=== PATIENT | male | born 1975 | race Caucasian/White ===

== ENCOUNTER 2020-08-13 19:18 | Inpatient (IN) ==
[2020-08-13] MEDS ORDERED: methylPREDNISolone 125 MG/2 ML VIAL IVP ONE (19:26)
[2020-08-13] MEDS ORDERED: 0.9 % Sodium Chloride 1,000 ML IVC ONE ×2 (19:26→19:27)
[2020-08-13] MEDS ORDERED: Ipratropium/Albuterol Neb 3 ML IH ONE (19:26)
[2020-08-13 19:39] LABS: Basophils % 0.2 %; Hematocrit 46.1 % (37.5-50.1); Hemoglobin 15.3 g/dL (12.9-16.9); Immature Granulocytes % 0.6 % (0-4); Lymphocytes # 1.4 K/mcL (0.6-4.6); Lymphocytes % 16.2 %; Mean Corpuscular HGB Conc 33.2 g/dL (31.6-35.5); Mean Corpuscular Hemoglobin 29.7 pg (28.0-33.3); Mean Corpuscular Volume 89.3 fL (83.0-100.0); Mean Platelet Volume 10.5 fL (9.4-12.4); Monocytes # 0.3 K/mcL (0.0-1.3); Monocytes % 3.9 %; Neutrophils # 6.6 K/mcL (1.6-8.9); Platelet Count 281 K/mcL (140-400); Red Blood Count 5.16 M/mcL (4.19-5.50); Red Cell Distribution Width 12.9 % (11.5-14.5); Segmented Neutrophils % 79.1 %; White Blood Count 8.3 K/mcL (4.3-11.1)
[2020-08-13] MEDS ORDERED: cefTRIAXone 2,000 MG in Water for inj. (sterile) 20 ML IVP ONE (19:54)
[2020-08-13] MEDS ORDERED: Azithromycin 500 MG in 0.9 % Sodium Chloride 250 ML IVPB ONE (19:54)
[2020-08-13 19:58] LABS: BUN/Creatinine Ratio 25 (6-26); Blood Urea Nitrogen 22 mg/dL (6-20); Calcium 8.6 mg/dL (8.6-10.3); Carbon Dioxide 22 mEq/L (23-29); Chloride 97 mEq/L (98-107); Glucose 319 mg/dL (70-105); Osmolality,Calculated 292 (280-300); Potassium 3.7 mEq/L (3.5-5.1); Sodium 133 mEq/L (136-145); Troponin I < 0.03 ng/mL (< 0.04); eGFR For African Americans > 60 (> 60); eGFR For Non-African Americans > 60 (> 60)
[2020-08-13] MEDS ORDERED: Isovue-370 500 ML BOTTLE IVP ONE (20:27)
[2020-08-13] MEDS ORDERED: Ondansetron ODT 4 MG TAB.RAPDIS SL PRN (21:06)
[2020-08-13] MEDS: Ipratropium 1 PUFF INHALER IH SCH (22:45)
[2020-08-13] MEDS ORDERED: Nicotine 21 MG PATCH.TD24 TD PRN (23:09)
[2020-08-14 00:07] LABS: Hematocrit 45.6 % (37.5-50.1); Hemoglobin 14.6 g/dL (12.9-16.9); Mean Corpuscular Hemoglobin 29.3 pg (28.0-33.3); Mean Corpuscular Volume 91.6 fL (83.0-100.0); Mean Platelet Volume 10.6 fL (9.4-12.4); Platelet Count 267 K/mcL (140-400); Red Blood Count 4.98 M/mcL (4.19-5.50); Red Cell Distribution Width 13.1 % (11.5-14.5); White Blood Count 8.5 K/mcL (4.3-11.1)
[2020-08-14 00:26] LABS: Alanine Aminotransferase 51 Units/L (7-52); Albumin 3.4 g/dL (3.5-5.7); Albumin/Globulin Ratio 0.9 (1.1-2.2); Alkaline Phosphatase 73 Units/L (34-104); Aspartate Amino Transferase 43 Units/L (13-39); BUN/Creatinine Ratio 20 (6-26); Bilirubin,Total 0.4 mg/dL (0.3-1.0); Blood Urea Nitrogen 16 mg/dL (6-20); Calcium 7.9 mg/dL (8.6-10.3); Carbon Dioxide 18 mEq/L (23-29); Chloride 103 mEq/L (98-107); Globulin 3.7 g/dL (2.4-3.5); Glucose 366 mg/dL (70-105); Osmolality,Calculated 292 (280-300); Potassium 4.2 mEq/L (3.5-5.1); Sodium 133 mEq/L (136-145); Total Protein 7.1 g/dL (6.4-8.9); eGFR For African Americans > 60 (> 60); eGFR For Non-African Americans > 60 (> 60)
[2020-08-14] MEDS: Ipratropium 1 PUFF INHALER IH SCH ×6 (00:26→19:37)
[2020-08-14 00:59] LABS: ABG Base Excess -4 mEq/L (-2 to 3); ABG HCO3 20 mEq/L (21-27); ABG Oxygen Saturation 91 % (95-98); ABG PCO2 33 mmHg (35-45); ABG PH 7.39 pH Units (7.32-7.45); ABG PO2 62 mmHg (85-104); ABG TCO2 21 mEq/L (20-26); Blood Gas Modality ST; Blood Gas Pressure Support 6 cm H2O
[2020-08-14] MEDS: Dexamethasone 4 MG/ML VIAL IVP SCH ×3 (01:16→10:10)
[2020-08-14] MEDS: *HR* Enoxaparin 40 MG/0.4 ML SYRINGE SQ SCH ×3 (01:20→20:25)
[2020-08-14] MEDS ORDERED: D5% in Water 1,000 ML IVC PRN (03:10)
[2020-08-14] MEDS ORDERED: *HR* Dextrose 50 % in Water (Vial) 50 ML VIAL IVP PRN (03:10)
[2020-08-14] MEDS ORDERED: Dextrose Gel 15 GM/37.5 ML TUBE PO PRN ×2 (03:10)
[2020-08-14] MEDS ORDERED: Dexmedetomidine HCl 400 MCG/100 ML MLS IVC SCH (03:15)
[2020-08-14] MEDS ORDERED: Insulin DETEMIR 100 UNIT/ML X5UNITS SQ SCH (03:15)
[2020-08-14] MEDS ORDERED: *HR* Enoxaparin 40 MG/0.4 ML SYRINGE SQ SCH (06:00)
[2020-08-14] MEDS ORDERED: Insulin LISPRO 300 UNITS/3 ML VIAL SQ SCH ×2 (06:00→21:00)
[2020-08-14] MEDS: Insulin LISPRO 300 UNITS/3 ML VIAL SQ SCH ×3 (07:35→17:48)
[2020-08-14] MEDS: cefTRIAXone 2,000 MG in Water for inj. (sterile) 20 ML IVP SCH (07:36)
[2020-08-14] MEDS: Furosemide 40 MG/4 ML VIAL IVP SCH (10:10)
[2020-08-14] MEDS: Azithromycin 500 MG in 0.9 % Sodium Chloride 250 ML IVPB SCH (10:12)
[2020-08-14] MEDS: Insulin DETEMIR 100 UNIT/ML X5UNITS SQ SCH (20:25)
[2020-08-15] MEDS: Ipratropium 1 PUFF INHALER IH SCH ×7 (00:32→23:53)
[2020-08-15 01:40] LABS: Basophils % 0.3 %; Hematocrit 41.5 % (37.5-50.1); Hemoglobin 13.4 g/dL (12.9-16.9); Immature Granulocytes % 0.8 % (0-4); Lymphocytes # 0.9 K/mcL (0.6-4.6); Lymphocytes % 14.2 %; Mean Corpuscular HGB Conc 32.3 g/dL (31.6-35.5); Mean Corpuscular Hemoglobin 29.1 pg (28.0-33.3); Mean Corpuscular Volume 90.2 fL (83.0-100.0); Mean Platelet Volume 10.8 fL (9.4-12.4); Monocytes # 0.6 K/mcL (0.0-1.3); Neutrophils # 4.8 K/mcL (1.6-8.9); Platelet Count 334 K/mcL (140-400); Red Cell Distribution Width 13.3 % (11.5-14.5); Segmented Neutrophils % 74.7 %; White Blood Count 6.4 K/mcL (4.3-11.1)
[2020-08-15 02:02] LABS: Alanine Aminotransferase 70 Units/L (7-52); Albumin 3.4 g/dL (3.5-5.7); Albumin/Globulin Ratio 0.9 (1.1-2.2); Alkaline Phosphatase 79 Units/L (34-104); Aspartate Amino Transferase 54 Units/L (13-39); BUN/Creatinine Ratio 36 (6-26); Bilirubin,Total 0.4 mg/dL (0.3-1.0); Blood Urea Nitrogen 27 mg/dL (6-20); C-Reactive Protein 178 mg/L (Less than 10); Calcium 8.6 mg/dL (8.6-10.3); Carbon Dioxide 21 mEq/L (23-29); Chloride 101 mEq/L (98-107); Globulin 3.6 g/dL (2.4-3.5); Glucose 376 mg/dL (70-105); Lactate Dehydrogenase 437 Units/L (140-271); Magnesium 2.6 mg/dL (1.6-2.6); Osmolality,Calculated 301 (280-300); Phosphorous 2.8 mg/dL (2.7-4.5); Potassium 4.1 mEq/L (3.5-5.1); Sodium 135 mEq/L (136-145); eGFR For African Americans > 60 (> 60); eGFR For Non-African Americans > 60 (> 60)
[2020-08-15 02:19] LABS: Ferritin 1474 ng/mL (20-250)
[2020-08-15 02:35] LABS: Platelet Estimate Normal (Normal)
[2020-08-15] MEDS: Furosemide 40 MG/4 ML VIAL IVP SCH (08:20)
[2020-08-15] MEDS: Dexamethasone 4 MG/ML VIAL IVP SCH (08:21)
[2020-08-15] MEDS: cefTRIAXone 2,000 MG in Water for inj. (sterile) 20 ML IVP SCH (08:21)
[2020-08-15] MEDS: *HR* Enoxaparin 40 MG/0.4 ML SYRINGE SQ SCH ×2 (08:21→20:59)
[2020-08-15] MEDS: Insulin DETEMIR 100 UNIT/ML X5UNITS SQ SCH ×2 (08:26→21:00)
[2020-08-15] MEDS: Azithromycin 500 MG in 0.9 % Sodium Chloride 250 ML IVPB SCH (08:26)
[2020-08-15] MEDS: Insulin LISPRO 300 UNITS/3 ML VIAL SQ SCH ×5 (08:52→17:11)
[2020-08-15] MEDS ORDERED: Insulin LISPRO 300 UNITS/3 ML VIAL SQ SCH (12:03)
[2020-08-15] MEDS: Furosemide 240 MG in 0.9 % Sodium Chloride 96 ML IVC SCH (12:25)
[2020-08-15] MEDS ORDERED: 0.9 % Sodium Chloride 250 ML ONE (15:23)
[2020-08-15] MEDS ORDERED: Insulin LISPRO 300 UNITS/3 ML VIAL SQ ONE (21:56)
[2020-08-16] MEDS: Ipratropium 1 PUFF INHALER IH SCH ×5 (03:28→19:53)
[2020-08-16 05:40] LABS: Basophils # 0.1 K/mcL (0.0-0.2); Basophils % 0.8 %; Hematocrit 45.1 % (37.5-50.1); Hemoglobin 14.4 g/dL (12.9-16.9); Immature Granulocytes % 0.9 % (0-4); Lymphocytes # 1.5 K/mcL (0.6-4.6); Lymphocytes % 14.4 %; Mean Corpuscular HGB Conc 31.9 g/dL (31.6-35.5); Mean Corpuscular Hemoglobin 29.4 pg (28.0-33.3); Mean Platelet Volume 11.8 fL (9.4-12.4); Monocytes % 8.9 %; Platelet Count 310 K/mcL (140-400); Red Cell Distribution Width 13.2 % (11.5-14.5)
[2020-08-16 05:49] LABS: White Blood Count 10.7 K/mcL (4.3-11.1)
[2020-08-16 06:06] LABS: Platelet Estimate Normal (Normal)
[2020-08-16 06:11] LABS: Alanine Aminotransferase 71 Units/L (7-52); Albumin 3.7 g/dL (3.5-5.7); Alkaline Phosphatase 93 Units/L (34-104); Aspartate Amino Transferase 36 Units/L (13-39); BUN/Creatinine Ratio 36 (6-26); Bilirubin,Total 0.5 mg/dL (0.3-1.0); Blood Urea Nitrogen 28 mg/dL (6-20); Calcium 8.6 mg/dL (8.6-10.3); Carbon Dioxide 25 mEq/L (23-29); Chloride 98 mEq/L (98-107); Globulin 3.7 g/dL (2.4-3.5); Glucose 331 mg/dL (70-105); Lactate Dehydrogenase 375 Units/L (140-271); Magnesium 2.2 mg/dL (1.6-2.6); Osmolality,Calculated 298 (280-300); Sodium 135 mEq/L (136-145); Total Protein 7.4 g/dL (6.4-8.9); eGFR For African Americans > 60 (> 60); eGFR For Non-African Americans > 60 (> 60)
[2020-08-16 06:22] LABS: Ferritin 1008 ng/mL (20-250)
[2020-08-16 07:36] LABS: Estimated Average Glucose 309 mg/dl; Hemoglobin A1C 12.4 %
[2020-08-16 08:04] LABS: C-Reactive Protein 61 mg/L (Less than 10)
[2020-08-16] MEDS: Dexamethasone 4 MG/ML VIAL IVP SCH (09:18)
[2020-08-16] MEDS: *HR* Enoxaparin 40 MG/0.4 ML SYRINGE SQ SCH ×2 (09:19→20:39)
[2020-08-16] MEDS: cefTRIAXone 2,000 MG in Water for inj. (sterile) 20 ML IVP SCH (09:19)
[2020-08-16] MEDS: Azithromycin 500 MG in 0.9 % Sodium Chloride 250 ML IVPB SCH (09:20)
[2020-08-16] MEDS: Insulin DETEMIR 100 UNIT/ML X5UNITS SQ SCH ×2 (09:20→20:38)
[2020-08-16] MEDS: Insulin LISPRO 300 UNITS/3 ML VIAL SQ SCH ×4 (09:21→17:23)
[2020-08-16] MEDS: Furosemide 240 MG in 0.9 % Sodium Chloride 96 ML IVC SCH (12:10)
[2020-08-16] MEDS: Furosemide 80 MG in 0.9 % Sodium Chloride 50 ML IVPB SCH ×2 (12:52→20:38)
[2020-08-16] MEDS: *HR* LORazepam 2 MG/ML VIAL IVP PRN ×2 (14:23→22:56)
[2020-08-16] MEDS ORDERED: Insulin LISPRO 300 UNITS/3 ML VIAL SQ SCH (17:00)
[2020-08-16] MEDS ORDERED: Insulin LISPRO 300 UNITS/3 ML VIAL SQ ONE (21:39)
[2020-08-17] MEDS: Ipratropium 1 PUFF INHALER IH SCH ×6 (00:09→20:27)
[2020-08-17 07:49] LABS: Basophils # 0.1 K/mcL (0.0-0.2); Basophils % 0.4 %; Immature Granulocytes % 1.4 % (0-4); Lymphocytes # 2.2 K/mcL (0.6-4.6); Lymphocytes % 15.2 %; Mean Corpuscular HGB Conc 32.6 g/dL (31.6-35.5); Mean Corpuscular Hemoglobin 29.7 pg (28.0-33.3); Mean Corpuscular Volume 91.1 fL (83.0-100.0); Mean Platelet Volume 10.6 fL (9.4-12.4); Monocytes # 1.1 K/mcL (0.0-1.3); Monocytes % 7.8 %; Neutrophils # 10.8 K/mcL (1.6-8.9); Platelet Count 465 K/mcL (140-400); Red Blood Count 4.72 M/mcL (4.19-5.50); Red Cell Distribution Width 12.6 % (11.5-14.5); Segmented Neutrophils % 75.2 %; White Blood Count 14.4 K/mcL (4.3-11.1)
[2020-08-17 08:27] LABS: Hypersegmented Neutrophils Present (Not Present); Platelet Estimate Normal (Normal); Toxic Granulation Present (Not Present)
[2020-08-17 08:43] LABS: Alanine Aminotransferase 76 Units/L (7-52); Albumin 3.4 g/dL (3.5-5.7); Alkaline Phosphatase 85 Units/L (34-104); Aspartate Amino Transferase 30 Units/L (13-39); BUN/Creatinine Ratio 38 (6-26); Bilirubin,Total 0.5 mg/dL (0.3-1.0); Blood Urea Nitrogen 29 mg/dL (6-20); Calcium 8.5 mg/dL (8.6-10.3); Carbon Dioxide 28 mEq/L (23-29); Chloride 96 mEq/L (98-107); Globulin 3.3 g/dL (2.4-3.5); Glucose 296 mg/dL (70-105); Lactate Dehydrogenase 315 Units/L (140-271); Magnesium 2.4 mg/dL (1.6-2.6); Osmolality,Calculated 293 (280-300); Phosphorous 4.1 mg/dL (2.7-4.5); Sodium 133 mEq/L (136-145); Total Protein 6.7 g/dL (6.4-8.9); eGFR For African Americans > 60 (> 60); eGFR For Non-African Americans > 60 (> 60)
[2020-08-17] MEDS: Dexamethasone Sodium Phos/PF 10 MG/ML VIAL IVP SCH (09:18)
[2020-08-17] MEDS: Furosemide 80 MG in 0.9 % Sodium Chloride 50 ML IVPB SCH ×2 (09:18→21:13)
[2020-08-17] MEDS: Azithromycin 500 MG in 0.9 % Sodium Chloride 250 ML IVPB SCH (09:19)
[2020-08-17] MEDS: cefTRIAXone 2,000 MG in Water for inj. (sterile) 20 ML IVP SCH (09:19)
[2020-08-17] MEDS: *HR* LORazepam 2 MG/ML VIAL IVP PRN ×2 (09:19→16:40)
[2020-08-17] MEDS: Insulin DETEMIR 100 UNIT/ML X5UNITS SQ SCH ×2 (09:20→21:13)
[2020-08-17] MEDS: Nicotine 21 MG PATCH.TD24 TD SCH (09:20)
[2020-08-17] MEDS: Insulin LISPRO 300 UNITS/3 ML VIAL SQ SCH ×6 (09:20→16:37)
[2020-08-17] MEDS: *HR* Enoxaparin 40 MG/0.4 ML SYRINGE SQ SCH ×2 (09:21→21:13)
[2020-08-17 09:27] LABS: C-Reactive Protein 24 mg/L (Less than 10)
[2020-08-17 10:32] LABS: Ferritin 852 ng/mL (20-250)
[2020-08-17] MEDS ORDERED: Insulin DETEMIR 100 UNIT/ML X5UNITS SQ ONE (13:14)
[2020-08-18] MEDS: Ipratropium 1 PUFF INHALER IH SCH ×6 (00:06→20:21)
[2020-08-18] MEDS: *HR* LORazepam 2 MG/ML VIAL IVP PRN ×2 (00:28→08:28)
[2020-08-18 05:25] LABS: Hematocrit 44.4 % (37.5-50.1); Hemoglobin 15.1 g/dL (12.9-16.9); Mean Corpuscular Volume 88.1 fL (83.0-100.0); Mean Platelet Volume 10.7 fL (9.4-12.4); Platelet Count 418 K/mcL (140-400); Red Blood Count 5.04 M/mcL (4.19-5.50); Red Cell Distribution Width 12.4 % (11.5-14.5); White Blood Count 11.5 K/mcL (4.3-11.1)
[2020-08-18 08:07] LABS: BUN/Creatinine Ratio 38 (6-26); Blood Urea Nitrogen 28 mg/dL (6-20); Calcium 8.7 mg/dL (8.6-10.3); Carbon Dioxide 27 mEq/L (23-29); Chloride 96 mEq/L (98-107); Glucose 223 mg/dL (70-105); Magnesium 2.4 mg/dL (1.6-2.6); Osmolality,Calculated 290 (280-300); Potassium 4.2 mEq/L (3.5-5.1); Sodium 134 mEq/L (136-145); eGFR For African Americans > 60 (> 60); eGFR For Non-African Americans > 60 (> 60)
[2020-08-18] MEDS: GuaiFENesin Liq 200 MG/10 ML UDC PO PRN (08:27)
[2020-08-18] MEDS: *HR* Enoxaparin 40 MG/0.4 ML SYRINGE SQ SCH ×2 (08:27→19:33)
[2020-08-18] MEDS: Dexamethasone Sodium Phos/PF 10 MG/ML VIAL IVP SCH (08:27)
[2020-08-18] MEDS: Nicotine 21 MG PATCH.TD24 TD SCH (08:27)
[2020-08-18] MEDS: Insulin DETEMIR 100 UNIT/ML X5UNITS SQ SCH ×2 (08:27→19:33)
[2020-08-18] MEDS: Furosemide 80 MG in 0.9 % Sodium Chloride 50 ML IVPB SCH ×2 (08:28→19:32)
[2020-08-18] MEDS: Insulin LISPRO 300 UNITS/3 ML VIAL SQ SCH ×6 (08:28→16:54)
[2020-08-18] MEDS ORDERED: 0.9 % Sodium Chloride 250 ML ONE (14:09)
[2020-08-19] MEDS: Ipratropium 1 PUFF INHALER IH SCH ×7 (00:23→23:46)
[2020-08-19] MEDS: Insulin LISPRO 300 UNITS/3 ML VIAL SQ SCH ×7 (08:08→22:00)
[2020-08-19] MEDS: Insulin DETEMIR 100 UNIT/ML X5UNITS SQ SCH ×2 (08:14→22:03)
[2020-08-19] MEDS: Dexamethasone Sodium Phos/PF 10 MG/ML VIAL IVP SCH (08:15)
[2020-08-19] MEDS: *HR* Enoxaparin 40 MG/0.4 ML SYRINGE SQ SCH ×2 (08:15→21:57)
[2020-08-19] MEDS: Nicotine 21 MG PATCH.TD24 TD SCH (08:16)
[2020-08-19] MEDS: Furosemide 80 MG in 0.9 % Sodium Chloride 50 ML IVPB SCH ×3 (08:16→22:08)
[2020-08-19 15:34] LABS: Hematocrit 43.9 % (37.5-50.1); Hemoglobin 14.9 g/dL (12.9-16.9); Mean Corpuscular HGB Conc 33.9 g/dL (31.6-35.5); Mean Corpuscular Hemoglobin 30.4 pg (28.0-33.3); Mean Corpuscular Volume 89.6 fL (83.0-100.0); Mean Platelet Volume 10.5 fL (9.4-12.4); Platelet Count 524 K/mcL (140-400); Red Cell Distribution Width 12.2 % (11.5-14.5)
[2020-08-19 15:52] LABS: BUN/Creatinine Ratio 34 (6-26); Blood Urea Nitrogen 29 mg/dL (6-20); Carbon Dioxide 26 mEq/L (23-29); Chloride 91 mEq/L (98-107); Glucose 422 mg/dL (70-105); Osmolality,Calculated 292 (280-300); Potassium 4.7 mEq/L (3.5-5.1); Sodium 129 mEq/L (136-145); eGFR For African Americans > 60 (> 60); eGFR For Non-African Americans > 60 (> 60)
[2020-08-19] MEDS: *HR* LORazepam 2 MG/ML VIAL IVP PRN (22:24)
[2020-08-20] MEDS: Ipratropium 1 PUFF INHALER IH SCH ×6 (04:07→23:35)
[2020-08-20 05:50] LABS: Hematocrit 44.2 % (37.5-50.1); Hemoglobin 14.3 g/dL (12.9-16.9); Mean Corpuscular HGB Conc 32.4 g/dL (31.6-35.5); Mean Corpuscular Hemoglobin 28.7 pg (28.0-33.3); Mean Corpuscular Volume 88.8 fL (83.0-100.0); Mean Platelet Volume 11.1 fL (9.4-12.4); Platelet Count 384 K/mcL (140-400); Red Blood Count 4.98 M/mcL (4.19-5.50); Red Cell Distribution Width 12.3 % (11.5-14.5)
[2020-08-20 06:26] LABS: BUN/Creatinine Ratio 41 (6-26); Blood Urea Nitrogen 30 mg/dL (6-20); Carbon Dioxide 31 mEq/L (23-29); Chloride 96 mEq/L (98-107); Glucose 145 mg/dL (70-105); Osmolality,Calculated 289 (280-300); Potassium 4.2 mEq/L (3.5-5.1); Sodium 135 mEq/L (136-145); eGFR For African Americans > 60 (> 60); eGFR For Non-African Americans > 60 (> 60)
[2020-08-20] MEDS: Dexamethasone Sodium Phos/PF 10 MG/ML VIAL IVP SCH (07:57)
[2020-08-20] MEDS: Furosemide 20 MG/2 ML VIAL IVP SCH (07:58)
[2020-08-20] MEDS: *HR* LORazepam 2 MG/ML VIAL IVP PRN (07:58)
[2020-08-20] MEDS: *HR* Enoxaparin 40 MG/0.4 ML SYRINGE SQ SCH ×2 (07:58→20:27)
[2020-08-20] MEDS: Insulin DETEMIR 100 UNIT/ML X5UNITS SQ SCH ×2 (07:59→20:27)
[2020-08-20] MEDS: Insulin LISPRO 300 UNITS/3 ML VIAL SQ SCH ×6 (07:59→17:06)
[2020-08-20] MEDS: Nicotine 21 MG PATCH.TD24 TD SCH (08:00)
[2020-08-20] MEDS ORDERED: 0.9 % Sodium Chloride 250 ML ONE (16:46)
[2020-08-21] MEDS: Ipratropium 1 PUFF INHALER IH SCH ×6 (03:47→23:26)
[2020-08-21 07:07] LABS: Hematocrit 46.3 % (37.5-50.1); Hemoglobin 14.7 g/dL (12.9-16.9); Mean Corpuscular HGB Conc 31.7 g/dL (31.6-35.5); Mean Corpuscular Hemoglobin 28.7 pg (28.0-33.3); Mean Corpuscular Volume 90.4 fL (83.0-100.0); Mean Platelet Volume 10.4 fL (9.4-12.4); Platelet Count 604 K/mcL (140-400); Red Blood Count 5.12 M/mcL (4.19-5.50); Red Cell Distribution Width 12.5 % (11.5-14.5); White Blood Count 16.4 K/mcL (4.3-11.1)
[2020-08-21 07:27] LABS: BUN/Creatinine Ratio 41 (6-26); Blood Urea Nitrogen 29 mg/dL (6-20); Calcium 9.4 mg/dL (8.6-10.3); Carbon Dioxide 26 mEq/L (23-29); Chloride 100 mEq/L (98-107); Glucose 154 mg/dL (70-105); Osmolality,Calculated 293 (280-300); Potassium 3.9 mEq/L (3.5-5.1); Sodium 137 mEq/L (136-145); eGFR For African Americans > 60 (> 60); eGFR For Non-African Americans > 60 (> 60)
[2020-08-21] MEDS: Dexamethasone Sodium Phos/PF 10 MG/ML VIAL IVP SCH (08:02)
[2020-08-21] MEDS: Furosemide 20 MG/2 ML VIAL IVP SCH (08:02)
[2020-08-21] MEDS: *HR* Enoxaparin 40 MG/0.4 ML SYRINGE SQ SCH ×2 (08:03→20:58)
[2020-08-21] MEDS: Insulin LISPRO 300 UNITS/3 ML VIAL SQ SCH ×6 (08:03→17:23)
[2020-08-21] MEDS: Nicotine 21 MG PATCH.TD24 TD SCH (08:04)
[2020-08-21] MEDS: Insulin DETEMIR 100 UNIT/ML X5UNITS SQ SCH ×2 (08:10→21:17)
[2020-08-21] MEDS: Melatonin 3 MG TABLET PO PRN (22:13)
[2020-08-22] MEDS: Ipratropium 1 PUFF INHALER IH SCH ×6 (03:48→23:26)
[2020-08-22] MEDS: Insulin LISPRO 300 UNITS/3 ML VIAL SQ SCH ×6 (07:01→17:55)
[2020-08-22] MEDS: Furosemide 20 MG/2 ML VIAL IVP SCH (07:34)
[2020-08-22] MEDS: *HR* Enoxaparin 40 MG/0.4 ML SYRINGE SQ SCH ×2 (07:34→20:32)
[2020-08-22] MEDS: Nicotine 21 MG PATCH.TD24 TD SCH (07:34)
[2020-08-22] MEDS: Dexamethasone Sodium Phos/PF 10 MG/ML VIAL IVP SCH (07:34)
[2020-08-22] MEDS: Insulin DETEMIR 100 UNIT/ML X5UNITS SQ SCH ×2 (10:11→20:32)
[2020-08-22 14:50] LABS: Hematocrit 49.4 % (37.5-50.1); Mean Corpuscular HGB Conc 32.4 g/dL (31.6-35.5); Mean Corpuscular Hemoglobin 29.7 pg (28.0-33.3); Mean Corpuscular Volume 91.8 fL (83.0-100.0); Mean Platelet Volume 10.7 fL (9.4-12.4); Platelet Count 526 K/mcL (140-400); Red Blood Count 5.38 M/mcL (4.19-5.50); Red Cell Distribution Width 12.7 % (11.5-14.5); White Blood Count 11.8 K/mcL (4.3-11.1)
[2020-08-22 15:16] LABS: BUN/Creatinine Ratio 39 (6-26); Blood Urea Nitrogen 32 mg/dL (6-20); Calcium 9.8 mg/dL (8.6-10.3); Carbon Dioxide 20 mEq/L (23-29); Chloride 98 mEq/L (98-107); Glucose 213 mg/dL (70-105); Magnesium 2.4 mg/dL (1.6-2.6); Osmolality,Calculated 289 (280-300); Potassium 4.7 mEq/L (3.5-5.1); Sodium 133 mEq/L (136-145); eGFR For African Americans > 60 (> 60); eGFR For Non-African Americans > 60 (> 60)
[2020-08-23 02:39] LABS: Mean Corpuscular Volume 90.7 fL (83.0-100.0); Mean Platelet Volume 10.4 fL (9.4-12.4); Platelet Count 472 K/mcL (140-400); Red Blood Count 4.96 M/mcL (4.19-5.50); Red Cell Distribution Width 12.6 % (11.5-14.5); White Blood Count 15.3 K/mcL (4.3-11.1)
[2020-08-23 02:44] LABS: Hemoglobin 14.4 g/dL (12.9-16.9)
[2020-08-23 02:47] LABS: BUN/Creatinine Ratio 43 (6-26); Blood Urea Nitrogen 34 mg/dL (6-20); Carbon Dioxide 24 mEq/L (23-29); Chloride 99 mEq/L (98-107); Glucose 130 mg/dL (70-105); Osmolality,Calculated 285 (280-300); Potassium 3.7 mEq/L (3.5-5.1); Sodium 133 mEq/L (136-145); eGFR For African Americans > 60 (> 60); eGFR For Non-African Americans > 60 (> 60)
[2020-08-23] MEDS: Ipratropium 1 PUFF INHALER IH SCH ×6 (03:50→23:52)
[2020-08-23] MEDS: Furosemide 20 MG TABLET PO SCH (07:53)
[2020-08-23] MEDS: Insulin LISPRO 300 UNITS/3 ML VIAL SQ SCH ×6 (07:53→17:12)
[2020-08-23] MEDS: Dexamethasone Sodium Phos/PF 10 MG/ML VIAL IVP SCH (07:53)
[2020-08-23] MEDS: *HR* Enoxaparin 40 MG/0.4 ML SYRINGE SQ SCH ×2 (07:53→21:03)
[2020-08-23] MEDS: Insulin DETEMIR 100 UNIT/ML X5UNITS SQ SCH ×2 (07:54→21:02)
[2020-08-23] MEDS: Nicotine 21 MG PATCH.TD24 TD SCH (07:54)
[2020-08-23] MEDS: GuaiFENesin Liq 200 MG/10 ML UDC PO PRN (07:56)
[2020-08-23] MEDS: *HR* LORazepam 2 MG/ML VIAL IVP PRN ×2 (08:09→22:15)
[2020-08-24 02:14] LABS: Hemoglobin 14.7 g/dL (12.9-16.9); Mean Corpuscular HGB Conc 32.7 g/dL (31.6-35.5); Mean Corpuscular Hemoglobin 29.1 pg (28.0-33.3); Mean Corpuscular Volume 89.1 fL (83.0-100.0); Mean Platelet Volume 10.4 fL (9.4-12.4); Platelet Count 445 K/mcL (140-400); Red Blood Count 5.05 M/mcL (4.19-5.50); Red Cell Distribution Width 12.3 % (11.5-14.5); White Blood Count 15.1 K/mcL (4.3-11.1)
[2020-08-24 02:36] LABS: BUN/Creatinine Ratio 33 (6-26); Blood Urea Nitrogen 24 mg/dL (6-20); Calcium 8.9 mg/dL (8.6-10.3); Carbon Dioxide 23 mEq/L (23-29); Chloride 98 mEq/L (98-107); Glucose 110 mg/dL (70-105); Osmolality,Calculated 279 (280-300); Potassium 3.6 mEq/L (3.5-5.1); Sodium 132 mEq/L (136-145); eGFR For African Americans > 60 (> 60); eGFR For Non-African Americans > 60 (> 60)
[2020-08-24] MEDS: Ipratropium 1 PUFF INHALER IH SCH ×6 (03:58→22:58)
[2020-08-24] MEDS: Insulin LISPRO 300 UNITS/3 ML VIAL SQ SCH ×6 (08:39→16:50)
[2020-08-24] MEDS: *HR* Enoxaparin 40 MG/0.4 ML SYRINGE SQ SCH ×2 (08:45→20:25)
[2020-08-24] MEDS: Dexamethasone Sodium Phos/PF 10 MG/ML VIAL IVP SCH (08:45)
[2020-08-24] MEDS: Furosemide 20 MG TABLET PO SCH (08:45)
[2020-08-24] MEDS: Nicotine 21 MG PATCH.TD24 TD SCH (08:45)
[2020-08-24] MEDS: Insulin DETEMIR 100 UNIT/ML X5UNITS SQ SCH ×2 (08:47→20:25)
[2020-08-24] MEDS: GuaiFENesin Liq 200 MG/10 ML UDC PO PRN (09:16)
[2020-08-24] MEDS: *HR* LORazepam 2 MG/ML VIAL IVP PRN ×2 (09:21→20:25)
[2020-08-24] MEDS ORDERED: Furosemide 40 MG/4 ML VIAL IVP ONE (10:43)
[2020-08-24] MEDS: Furosemide 40 MG/4 ML VIAL IVP SCH ×2 (10:50→16:28)
[2020-08-24 11:13] LABS: ABG Base Excess 3 mEq/L (-2 to 3); ABG HCO3 26 mEq/L (21-27); ABG Oxygen Saturation 97 % (95-98); ABG PCO2 35 mmHg (35-45); ABG PH 7.48 pH Units (7.32-7.45); ABG PO2 79 mmHg (85-104); ABG TCO2 27 mEq/L (20-26)
[2020-08-24] MEDS: Melatonin 3 MG TABLET PO PRN (20:25)
[2020-08-25] MEDS: Ipratropium 1 PUFF INHALER IH SCH ×6 (03:40→23:38)
[2020-08-25] MEDS: Nicotine 21 MG PATCH.TD24 TD SCH (08:29)
[2020-08-25] MEDS: *HR* Enoxaparin 40 MG/0.4 ML SYRINGE SQ SCH ×2 (08:29→19:19)
[2020-08-25] MEDS: Furosemide 40 MG/4 ML VIAL IVP SCH ×2 (08:30→17:12)
[2020-08-25] MEDS: Dexamethasone Sodium Phos/PF 10 MG/ML VIAL IVP SCH (08:30)
[2020-08-25] MEDS: Insulin DETEMIR 100 UNIT/ML X5UNITS SQ SCH ×2 (09:09→19:19)
[2020-08-25] MEDS: Insulin LISPRO 300 UNITS/3 ML VIAL SQ SCH ×6 (09:09→17:13)
[2020-08-25] MEDS: Acetaminophen 325 MG TABLET PO PRN (09:18)
[2020-08-25 11:37] LABS: Basophils # 0.1 K/mcL (0.0-0.2); Basophils % 0.3 %; Eosinophils # 0.1 K/mcL (0.0-0.6); Eosinophils % 0.3 %; Hematocrit 46.4 % (37.5-50.1); Hemoglobin 15.3 g/dL (12.9-16.9); Immature Granulocytes % 1.1 % (0-4); Lymphocytes % 5.9 %; Mean Corpuscular Hemoglobin 29.2 pg (28.0-33.3); Mean Corpuscular Volume 88.5 fL (83.0-100.0); Mean Platelet Volume 11.2 fL (9.4-12.4); Monocytes % 5.7 %; Platelet Count 438 K/mcL (140-400); Red Blood Count 5.24 M/mcL (4.19-5.50); Red Cell Distribution Width 12.2 % (11.5-14.5); Segmented Neutrophils % 86.7 %; White Blood Count 17.3 K/mcL (4.3-11.1)
[2020-08-25 11:45] LABS: Fibrinogen 552 mg/dL (169-393)
[2020-08-25 11:46] LABS: D-Dimer 591 ng/mLFEU (0-500)
[2020-08-25 11:57] LABS: BUN/Creatinine Ratio 32 (6-26); Blood Urea Nitrogen 28 mg/dL (6-20); Carbon Dioxide 25 mEq/L (23-29); Chloride 92 mEq/L (98-107); Glucose 302 mg/dL (70-105); Osmolality,Calculated 287 (280-300); Potassium 3.6 mEq/L (3.5-5.1); Sodium 130 mEq/L (136-145); eGFR For African Americans > 60 (> 60); eGFR For Non-African Americans > 60 (> 60)
[2020-08-25] MEDS: *HR* LORazepam 2 MG/ML VIAL IVP PRN (18:55)
[2020-08-26] MEDS: Ipratropium 1 PUFF INHALER IH SCH ×6 (03:55→23:57)
[2020-08-26] MEDS: Dexamethasone Sodium Phos/PF 10 MG/ML VIAL IVP SCH (08:17)
[2020-08-26] MEDS: Nicotine 21 MG PATCH.TD24 TD SCH (08:17)
[2020-08-26] MEDS: *HR* Enoxaparin 40 MG/0.4 ML SYRINGE SQ SCH ×2 (08:18→20:03)
[2020-08-26] MEDS: Insulin DETEMIR 100 UNIT/ML X5UNITS SQ SCH ×2 (08:18→20:03)
[2020-08-26] MEDS: Insulin LISPRO 300 UNITS/3 ML VIAL SQ SCH ×6 (08:49→16:30)
[2020-08-26] MEDS: Furosemide 40 MG/4 ML VIAL IVP SCH ×2 (08:54→16:32)
[2020-08-26 09:52] LABS: Basophils % 0.2 %; Eosinophils # 0.1 K/mcL (0.0-0.6); Eosinophils % 0.3 %; Hematocrit 45.8 % (37.5-50.1); Hemoglobin 15.2 g/dL (12.9-16.9); Lymphocytes # 2.4 K/mcL (0.6-4.6); Lymphocytes % 14.1 %; Mean Corpuscular HGB Conc 33.2 g/dL (31.6-35.5); Mean Corpuscular Hemoglobin 29.1 pg (28.0-33.3); Mean Corpuscular Volume 87.6 fL (83.0-100.0); Monocytes # 1.1 K/mcL (0.0-1.3); Monocytes % 6.2 %; Neutrophils # 13.5 K/mcL (1.6-8.9); Platelet Count 406 K/mcL (140-400); Red Blood Count 5.23 M/mcL (4.19-5.50); Red Cell Distribution Width 12.4 % (11.5-14.5); Segmented Neutrophils % 78.2 %; White Blood Count 17.3 K/mcL (4.3-11.1)
[2020-08-26 10:02] LABS: Fibrinogen 500 mg/dL (169-393)
[2020-08-26 10:05] LABS: D-Dimer 580 ng/mLFEU (0-500)
[2020-08-26 10:12] LABS: BUN/Creatinine Ratio 31 (6-26); Blood Urea Nitrogen 22 mg/dL (6-20); Calcium 9.5 mg/dL (8.6-10.3); Carbon Dioxide 26 mEq/L (23-29); Chloride 97 mEq/L (98-107); Glucose 143 mg/dL (70-105); Osmolality,Calculated 284 (280-300); Potassium 3.6 mEq/L (3.5-5.1); Sodium 134 mEq/L (136-145); eGFR For African Americans > 60 (> 60); eGFR For Non-African Americans > 60 (> 60)
[2020-08-26] MEDS: *HR* LORazepam 2 MG/ML VIAL IVP PRN ×3 (10:37→23:55)
[2020-08-26] MEDS: GuaiFENesin Liq 200 MG/10 ML UDC PO PRN (10:37)
[2020-08-27] MEDS: Ipratropium 1 PUFF INHALER IH SCH ×6 (04:40→23:50)
[2020-08-27] MEDS: Insulin LISPRO 300 UNITS/3 ML VIAL SQ SCH ×6 (07:08→17:12)
[2020-08-27] MEDS: Nicotine 21 MG PATCH.TD24 TD SCH ×2 (08:15→10:02)
[2020-08-27] MEDS: Furosemide 40 MG/4 ML VIAL IVP SCH ×2 (08:15→17:10)
[2020-08-27] MEDS: Dexamethasone Sodium Phos/PF 10 MG/ML VIAL IVP SCH (08:16)
[2020-08-27] MEDS: *HR* Enoxaparin 40 MG/0.4 ML SYRINGE SQ SCH ×2 (08:16→21:33)
[2020-08-27] MEDS: Insulin DETEMIR 100 UNIT/ML X5UNITS SQ SCH ×2 (08:16→21:33)
[2020-08-27] MEDS: *HR* LORazepam 2 MG/ML VIAL IVP PRN ×2 (08:37→23:45)
[2020-08-27] MEDS: GuaiFENesin Liq 200 MG/10 ML UDC PO PRN ×2 (09:03→17:26)
[2020-08-28] MEDS: Ipratropium 1 PUFF INHALER IH SCH ×6 (03:54→23:25)
[2020-08-28] MEDS: Insulin LISPRO 300 UNITS/3 ML VIAL SQ SCH ×6 (07:59→16:49)
[2020-08-28] MEDS: *HR* LORazepam 2 MG/ML VIAL IVP PRN ×2 (08:57→15:54)
[2020-08-28] MEDS: GuaiFENesin Liq 200 MG/10 ML UDC PO PRN ×2 (08:57→16:50)
[2020-08-28] MEDS: Furosemide 40 MG/4 ML VIAL IVP SCH ×2 (09:17→16:50)
[2020-08-28] MEDS: Dexamethasone Sodium Phos/PF 10 MG/ML VIAL IVP SCH (09:17)
[2020-08-28] MEDS: Insulin DETEMIR 100 UNIT/ML X5UNITS SQ SCH ×2 (09:18→21:24)
[2020-08-28] MEDS: *HR* Enoxaparin 40 MG/0.4 ML SYRINGE SQ SCH ×3 (09:19→21:30)
[2020-08-28] MEDS: Nicotine 21 MG PATCH.TD24 TD SCH (09:19)
[2020-08-28] MEDS ORDERED: Saline Nasal Spray 44 ML BOTTLE NS PRN (11:39)
[2020-08-29] MEDS: GuaiFENesin Liq 200 MG/10 ML UDC PO PRN ×2 (00:52→12:42)
[2020-08-29] MEDS: *HR* LORazepam 2 MG/ML VIAL IVP PRN ×3 (00:52→21:34)
[2020-08-29 01:33] LABS: Basophils % 0.2 %; Eosinophils % 0.2 %; Hematocrit 43.2 % (37.5-50.1); Hemoglobin 14.7 g/dL (12.9-16.9); Immature Granulocytes % 1.3 % (0-4); Lymphocytes # 2.1 K/mcL (0.6-4.6); Lymphocytes % 13.2 %; Mean Corpuscular Hemoglobin 29.9 pg (28.0-33.3); Mean Corpuscular Volume 87.8 fL (83.0-100.0); Mean Platelet Volume 10.7 fL (9.4-12.4); Neutrophils # 12.6 K/mcL (1.6-8.9); Platelet Count 424 K/mcL (140-400); Red Blood Count 4.92 M/mcL (4.19-5.50); Red Cell Distribution Width 12.7 % (11.5-14.5); Segmented Neutrophils % 79.1 %; White Blood Count 15.9 K/mcL (4.3-11.1)
[2020-08-29 01:48] LABS: D-Dimer 744 ng/mLFEU (0-500)
[2020-08-29 01:54] LABS: BUN/Creatinine Ratio 32 (6-26); Blood Urea Nitrogen 23 mg/dL (6-20); Calcium 9.2 mg/dL (8.6-10.3); Carbon Dioxide 27 mEq/L (23-29); Chloride 93 mEq/L (98-107); Glucose 196 mg/dL (70-105); Osmolality,Calculated 281 (280-300); Potassium 3.6 mEq/L (3.5-5.1); Sodium 131 mEq/L (136-145); eGFR For African Americans > 60 (> 60); eGFR For Non-African Americans > 60 (> 60)
[2020-08-29 01:55] LABS: Fibrinogen 598 mg/dL (169-393)
[2020-08-29] MEDS: Ipratropium 1 PUFF INHALER IH SCH ×5 (03:43→20:14)
[2020-08-29] MEDS: Dexamethasone Sodium Phos/PF 10 MG/ML VIAL IVP SCH (08:32)
[2020-08-29] MEDS: *HR* Enoxaparin 40 MG/0.4 ML SYRINGE SQ SCH (08:33)
[2020-08-29] MEDS: Furosemide 40 MG/4 ML VIAL IVP SCH ×2 (08:34→17:24)
[2020-08-29] MEDS: Nicotine 21 MG PATCH.TD24 TD SCH ×2 (08:35→09:26)
[2020-08-29] MEDS: Insulin DETEMIR 100 UNIT/ML X5UNITS SQ SCH ×2 (08:39→21:34)
[2020-08-29] MEDS: Insulin LISPRO 300 UNITS/3 ML VIAL SQ SCH ×6 (09:06→17:24)
[2020-08-30] MEDS: Ipratropium 1 PUFF INHALER IH SCH ×7 (00:02→23:58)
[2020-08-30] MEDS: GuaiFENesin Liq 200 MG/10 ML UDC PO PRN (04:26)
[2020-08-30] MEDS: Dexamethasone Sodium Phos/PF 10 MG/ML VIAL IVP SCH (09:00)
[2020-08-30] MEDS: Furosemide 40 MG/4 ML VIAL IVP SCH ×2 (09:00→16:25)
[2020-08-30] MEDS: Nicotine 21 MG PATCH.TD24 TD SCH (09:01)
[2020-08-30] MEDS: Insulin DETEMIR 100 UNIT/ML X5UNITS SQ SCH ×2 (09:02→21:35)
[2020-08-30] MEDS: *HR* Enoxaparin 40 MG/0.4 ML SYRINGE SQ SCH (09:02)
[2020-08-30] MEDS: *HR* LORazepam 2 MG/ML VIAL IVP PRN ×2 (09:18→17:30)
[2020-08-30] MEDS: Insulin LISPRO 300 UNITS/3 ML VIAL SQ SCH ×6 (09:30→16:24)
[2020-08-31] MEDS: *HR* LORazepam 2 MG/ML VIAL IVP PRN ×3 (00:09→21:18)
[2020-08-31] MEDS: Ipratropium 1 PUFF INHALER IH SCH ×6 (03:54→23:35)
[2020-08-31 06:34] LABS: Fibrinogen 500 mg/dL (169-393)
[2020-08-31 06:36] LABS: BUN/Creatinine Ratio 32 (6-26); Blood Urea Nitrogen 22 mg/dL (6-20); Calcium 9.1 mg/dL (8.6-10.3); Carbon Dioxide 29 mEq/L (23-29); Chloride 94 mEq/L (98-107); D-Dimer 737 ng/mLFEU (0-500); Glucose 148 mg/dL (70-105); Osmolality,Calculated 282 (280-300); Potassium 3.9 mEq/L (3.5-5.1); Sodium 133 mEq/L (136-145); eGFR For African Americans > 60 (> 60); eGFR For Non-African Americans > 60 (> 60)
[2020-08-31] MEDS: Insulin LISPRO 300 UNITS/3 ML VIAL SQ SCH ×6 (08:32→16:53)
[2020-08-31] MEDS: Nicotine 21 MG PATCH.TD24 TD SCH (08:33)
[2020-08-31] MEDS: Furosemide 40 MG/4 ML VIAL IVP SCH ×2 (08:38→16:51)
[2020-08-31] MEDS: Dexamethasone Sodium Phos/PF 10 MG/ML VIAL IVP SCH (08:39)
[2020-08-31] MEDS: Insulin DETEMIR 100 UNIT/ML X5UNITS SQ SCH ×2 (08:39→21:17)
[2020-08-31] MEDS: *HR* Enoxaparin 40 MG/0.4 ML SYRINGE SQ SCH (08:40)
[2020-08-31 09:35] LABS: Basophils % 0.3 %; Eosinophils # 0.4 K/mcL (0.0-0.6); Eosinophils % 2.8 %; Hematocrit 45.4 % (37.5-50.1); Hemoglobin 15.2 g/dL (12.9-16.9); Lymphocytes # 2.7 K/mcL (0.6-4.6); Lymphocytes % 20.6 %; Mean Corpuscular HGB Conc 33.5 g/dL (31.6-35.5); Mean Corpuscular Hemoglobin 29.6 pg (28.0-33.3); Mean Corpuscular Volume 88.5 fL (83.0-100.0); Mean Platelet Volume 11.1 fL (9.4-12.4); Monocytes # 0.9 K/mcL (0.0-1.3); Monocytes % 6.5 %; Platelet Count 324 K/mcL (140-400); Red Blood Count 5.13 M/mcL (4.19-5.50); Red Cell Distribution Width 13.1 % (11.5-14.5); Segmented Neutrophils % 68.8 %
[2020-09-01] MEDS: Ipratropium 1 PUFF INHALER IH SCH ×5 (03:58→20:20)
[2020-09-01 05:16] LABS: Basophils % 0.2 %; Eosinophils # 0.3 K/mcL (0.0-0.6); Hematocrit 40.1 % (37.5-50.1); Immature Granulocytes % 0.7 % (0-4); Lymphocytes # 2.1 K/mcL (0.6-4.6); Lymphocytes % 21.4 %; Mean Corpuscular HGB Conc 33.7 g/dL (31.6-35.5); Mean Corpuscular Hemoglobin 30.4 pg (28.0-33.3); Mean Corpuscular Volume 90.3 fL (83.0-100.0); Mean Platelet Volume 10.5 fL (9.4-12.4); Monocytes # 0.6 K/mcL (0.0-1.3); Monocytes % 6.5 %; Neutrophils # 6.7 K/mcL (1.6-8.9); Platelet Count 255 K/mcL (140-400); Red Blood Count 4.44 M/mcL (4.19-5.50); Red Cell Distribution Width 12.9 % (11.5-14.5); Segmented Neutrophils % 68.2 %; White Blood Count 9.9 K/mcL (4.3-11.1)
[2020-09-01 05:17] LABS: Hemoglobin 13.5 g/dL (12.9-16.9)
[2020-09-01 05:22] LABS: INR 1.1
[2020-09-01 05:29] LABS: Alanine Aminotransferase 234 Units/L (7-52); Albumin 3.4 g/dL (3.5-5.7); Albumin/Globulin Ratio 1.1 (1.1-2.2); Alkaline Phosphatase 72 Units/L (34-104); Aspartate Amino Transferase 40 Units/L (13-39); BUN/Creatinine Ratio 30 (6-26); Bilirubin,Total 0.5 mg/dL (0.3-1.0); Blood Urea Nitrogen 19 mg/dL (6-20); Carbon Dioxide 32 mEq/L (23-29); Chloride 93 mEq/L (98-107); Glucose 152 mg/dL (70-105); Magnesium 2.3 mg/dL (1.6-2.6); Osmolality,Calculated 283 (280-300); Phosphorous 4.6 mg/dL (2.7-4.5); Potassium 3.7 mEq/L (3.5-5.1); Sodium 134 mEq/L (136-145); Total Protein 6.4 g/dL (6.4-8.9); eGFR For African Americans > 60 (> 60); eGFR For Non-African Americans > 60 (> 60)
[2020-09-01] MEDS: Insulin LISPRO 300 UNITS/3 ML VIAL SQ SCH ×6 (07:56→16:09)
[2020-09-01] MEDS: Insulin DETEMIR 100 UNIT/ML X5UNITS SQ SCH ×2 (08:11→20:04)
[2020-09-01] MEDS: *HR* Enoxaparin 40 MG/0.4 ML SYRINGE SQ SCH (08:12)
[2020-09-01] MEDS: Dexamethasone Sodium Phos/PF 10 MG/ML VIAL IVP SCH (08:12)
[2020-09-01] MEDS: Furosemide 40 MG/4 ML VIAL IVP SCH (08:12)
[2020-09-01] MEDS: Nicotine 21 MG PATCH.TD24 TD SCH (08:14)
[2020-09-01] MEDS: GuaiFENesin Liq 200 MG/10 ML UDC PO PRN (09:18)
[2020-09-01] MEDS: *HR* LORazepam 2 MG/ML VIAL IVP PRN ×2 (11:00→20:04)
[2020-09-01] MEDS: Furosemide 40 MG TABLET PO SCH (16:09)
[2020-09-02] MEDS: Ipratropium 1 PUFF INHALER IH SCH ×6 (00:11→20:24)
[2020-09-02 01:39] LABS: Basophils % 0.3 %; Eosinophils # 0.4 K/mcL (0.0-0.6); Eosinophils % 3.2 %; Hematocrit 39.7 % (37.5-50.1); Hemoglobin 13.1 g/dL (12.9-16.9); Immature Granulocytes % 0.8 % (0-4); Lymphocytes # 2.1 K/mcL (0.6-4.6); Lymphocytes % 18.9 %; Mean Corpuscular Hemoglobin 29.6 pg (28.0-33.3); Mean Corpuscular Volume 89.8 fL (83.0-100.0); Mean Platelet Volume 10.8 fL (9.4-12.4); Monocytes # 0.8 K/mcL (0.0-1.3); Monocytes % 6.9 %; Neutrophils # 7.6 K/mcL (1.6-8.9); Platelet Count 251 K/mcL (140-400); Red Blood Count 4.42 M/mcL (4.19-5.50); Red Cell Distribution Width 12.8 % (11.5-14.5); Segmented Neutrophils % 69.9 %; White Blood Count 10.9 K/mcL (4.3-11.1)
[2020-09-02 01:40] LABS: Alanine Aminotransferase 282 Units/L (7-52); Albumin 3.3 g/dL (3.5-5.7); Albumin/Globulin Ratio 1.1 (1.1-2.2); Alkaline Phosphatase 87 Units/L (34-104); Aspartate Amino Transferase 52 Units/L (13-39); BUN/Creatinine Ratio 32 (6-26); Bilirubin,Total 0.4 mg/dL (0.3-1.0); Blood Urea Nitrogen 23 mg/dL (6-20); Calcium 8.7 mg/dL (8.6-10.3); Carbon Dioxide 31 mEq/L (23-29); Chloride 94 mEq/L (98-107); Glucose 171 mg/dL (70-105); Magnesium 2.1 mg/dL (1.6-2.6); Osmolality,Calculated 286 (280-300); Phosphorous 4.7 mg/dL (2.7-4.5); Potassium 3.5 mEq/L (3.5-5.1); Prothrombin Time 11.6 Seconds (9.4-12.1); Sodium 134 mEq/L (136-145); Total Protein 6.3 g/dL (6.4-8.9); eGFR For African Americans > 60 (> 60); eGFR For Non-African Americans > 60 (> 60)
[2020-09-02] MEDS: *HR* LORazepam 2 MG/ML VIAL IVP PRN ×2 (08:07→21:16)
[2020-09-02] MEDS: Insulin LISPRO 300 UNITS/3 ML VIAL SQ SCH ×6 (08:09→17:05)
[2020-09-02] MEDS: Nicotine 21 MG PATCH.TD24 TD SCH (08:10)
[2020-09-02] MEDS: *HR* Enoxaparin 40 MG/0.4 ML SYRINGE SQ SCH (08:10)
[2020-09-02] MEDS: Insulin DETEMIR 100 UNIT/ML X5UNITS SQ SCH ×2 (08:11→19:51)
[2020-09-02] MEDS: Furosemide 40 MG TABLET PO SCH ×2 (08:11→17:04)
[2020-09-02] MEDS: Dexamethasone Sodium Phos/PF 10 MG/ML VIAL IVP SCH (08:11)
[2020-09-03] MEDS: Ipratropium 1 PUFF INHALER IH SCH ×6 (00:26→20:33)
[2020-09-03] MEDS: *HR* LORazepam 2 MG/ML VIAL IVP PRN ×3 (01:24→20:03)
[2020-09-03 01:51] LABS: Basophils % 0.2 %; Eosinophils # 0.3 K/mcL (0.0-0.6); Eosinophils % 2.3 %; Hematocrit 43.4 % (37.5-50.1); Hemoglobin 13.9 g/dL (12.9-16.9); Immature Granulocytes % 0.7 % (0-4); Lymphocytes # 2.6 K/mcL (0.6-4.6); Lymphocytes % 20.9 %; Mean Corpuscular Hemoglobin 29.1 pg (28.0-33.3); Mean Platelet Volume 10.2 fL (9.4-12.4); Monocytes % 8.3 %; Neutrophils # 8.3 K/mcL (1.6-8.9); Platelet Count 275 K/mcL (140-400); Red Blood Count 4.77 M/mcL (4.19-5.50); Red Cell Distribution Width 12.9 % (11.5-14.5); Segmented Neutrophils % 67.6 %; White Blood Count 12.2 K/mcL (4.3-11.1)
[2020-09-03 01:52] LABS: INR 1.1; Prothrombin Time 12.7 Seconds (9.4-12.1)
[2020-09-03 02:08] LABS: Alanine Aminotransferase 295 Units/L (7-52); Albumin 3.7 g/dL (3.5-5.7); Albumin/Globulin Ratio 1.1 (1.1-2.2); Alkaline Phosphatase 85 Units/L (34-104); Aspartate Amino Transferase 47 Units/L (13-39); BUN/Creatinine Ratio 21 (6-26); Bilirubin,Total 0.5 mg/dL (0.3-1.0); Blood Urea Nitrogen 16 mg/dL (6-20); Calcium 8.8 mg/dL (8.6-10.3); Carbon Dioxide 29 mEq/L (23-29); Chloride 97 mEq/L (98-107); Globulin 3.3 g/dL (2.4-3.5); Glucose 172 mg/dL (70-105); Magnesium 2.2 mg/dL (1.6-2.6); Osmolality,Calculated 287 (280-300); Phosphorous 3.7 mg/dL (2.7-4.5); Potassium 3.5 mEq/L (3.5-5.1); Sodium 136 mEq/L (136-145); eGFR For African Americans > 60 (> 60); eGFR For Non-African Americans > 60 (> 60)
[2020-09-03] MEDS: Insulin LISPRO 300 UNITS/3 ML VIAL SQ SCH ×6 (07:47→17:17)
[2020-09-03] MEDS: Furosemide 40 MG TABLET PO SCH ×3 (08:07→17:29)
[2020-09-03] MEDS: Nicotine 21 MG PATCH.TD24 TD SCH ×2 (08:07→10:43)
[2020-09-03] MEDS: *HR* Enoxaparin 40 MG/0.4 ML SYRINGE SQ SCH (08:07)
[2020-09-03] MEDS: Insulin DETEMIR 100 UNIT/ML X5UNITS SQ SCH ×2 (08:08→19:54)
[2020-09-03] MEDS: Dexamethasone Sodium Phos/PF 10 MG/ML VIAL IVP SCH (08:08)
[2020-09-03] MEDS: GuaiFENesin Liq 200 MG/10 ML UDC PO PRN (08:12)
[2020-09-04] MEDS: Ipratropium 1 PUFF INHALER IH SCH ×7 (00:01→23:39)
[2020-09-04] MEDS: *HR* LORazepam 2 MG/ML VIAL IVP PRN ×3 (01:24→22:10)
[2020-09-04] MEDS: Insulin LISPRO 300 UNITS/3 ML VIAL SQ SCH ×6 (07:54→17:14)
[2020-09-04] MEDS: *HR* Enoxaparin 40 MG/0.4 ML SYRINGE SQ SCH (08:07)
[2020-09-04] MEDS: Furosemide 40 MG TABLET PO SCH ×3 (08:08→17:18)
[2020-09-04] MEDS: Dexamethasone Sodium Phos/PF 10 MG/ML VIAL IVP SCH (08:08)
[2020-09-04] MEDS: Insulin DETEMIR 100 UNIT/ML X5UNITS SQ SCH ×2 (08:08→19:55)
[2020-09-04] MEDS: Nicotine 21 MG PATCH.TD24 TD SCH (08:09)
[2020-09-04 09:58] LABS: Basophils % 0.3 %; Eosinophils # 0.5 K/mcL (0.0-0.6); Eosinophils % 5.5 %; Hemoglobin 14.2 g/dL (12.9-16.9); Immature Granulocytes % 0.9 % (0-4); Lymphocytes # 2.1 K/mcL (0.6-4.6); Lymphocytes % 21.8 %; Mean Corpuscular Volume 90.9 fL (83.0-100.0); Mean Platelet Volume 10.5 fL (9.4-12.4); Monocytes # 0.5 K/mcL (0.0-1.3); Monocytes % 5.2 %; Neutrophils # 6.4 K/mcL (1.6-8.9); Platelet Count 258 K/mcL (140-400); Red Blood Count 4.73 M/mcL (4.19-5.50); Segmented Neutrophils % 66.3 %; White Blood Count 9.7 K/mcL (4.3-11.1)
[2020-09-04 10:04] LABS: INR 1.1; Prothrombin Time 12.3 Seconds (9.4-12.1)
[2020-09-04 10:21] LABS: Alanine Aminotransferase 287 Units/L (7-52); Albumin 3.9 g/dL (3.5-5.7); Albumin/Globulin Ratio 1.2 (1.1-2.2); Alkaline Phosphatase 82 Units/L (34-104); Aspartate Amino Transferase 58 Units/L (13-39); BUN/Creatinine Ratio 23 (6-26); Bilirubin,Total 0.7 mg/dL (0.3-1.0); Blood Urea Nitrogen 17 mg/dL (6-20); Calcium 9.7 mg/dL (8.6-10.3); Carbon Dioxide 28 mEq/L (23-29); Chloride 98 mEq/L (98-107); Globulin 3.3 g/dL (2.4-3.5); Glucose 192 mg/dL (70-105); Magnesium 2.1 mg/dL (1.6-2.6); Osmolality,Calculated 287 (280-300); Phosphorous 3.9 mg/dL (2.7-4.5); Potassium 4.1 mEq/L (3.5-5.1); Sodium 135 mEq/L (136-145); Total Protein 7.2 g/dL (6.4-8.9); eGFR For African Americans > 60 (> 60); eGFR For Non-African Americans > 60 (> 60)
[2020-09-04] MEDS: Melatonin 3 MG TABLET PO PRN (22:10)
[2020-09-05] MEDS: *HR* LORazepam 2 MG/ML VIAL IVP PRN ×2 (04:00→23:12)
[2020-09-05] MEDS: Ipratropium 1 PUFF INHALER IH SCH ×5 (04:32→19:54)
[2020-09-05] MEDS: Insulin LISPRO 300 UNITS/3 ML VIAL SQ SCH ×6 (09:03→17:35)
[2020-09-05] MEDS: Furosemide 40 MG TABLET PO SCH ×2 (09:06→17:35)
[2020-09-05] MEDS: Insulin DETEMIR 100 UNIT/ML X5UNITS SQ SCH ×2 (09:06→21:18)
[2020-09-05] MEDS: Dexamethasone Sodium Phos/PF 10 MG/ML VIAL IVP SCH (09:06)
[2020-09-05] MEDS: *HR* Enoxaparin 40 MG/0.4 ML SYRINGE SQ SCH (09:07)
[2020-09-05] MEDS: Nicotine 21 MG PATCH.TD24 TD SCH (09:07)
[2020-09-05 10:59] LABS: Eosinophils % 6.1 %; Hematocrit 41.1 % (37.5-50.1); Hemoglobin 13.4 g/dL (12.9-16.9); Immature Granulocytes % 1.1 % (0-4); Lymphocytes % 19.2 %; Mean Corpuscular HGB Conc 32.6 g/dL (31.6-35.5); Mean Corpuscular Volume 91.9 fL (83.0-100.0); Mean Platelet Volume 10.5 fL (9.4-12.4); Monocytes % 7.7 %; Platelet Count 229 K/mcL (140-400); Red Blood Count 4.47 M/mcL (4.19-5.50); Red Cell Distribution Width 13.1 % (11.5-14.5); Segmented Neutrophils % 65.5 %; White Blood Count 9.4 K/mcL (4.3-11.1)
[2020-09-05 11:00] LABS: Basophils % 0.4 %; Eosinophils # 0.6 K/mcL (0.0-0.6); Lymphocytes # 1.8 K/mcL (0.6-4.6); Monocytes # 0.7 K/mcL (0.0-1.3); Neutrophils # 6.2 K/mcL (1.6-8.9)
[2020-09-05 11:11] LABS: INR 1.1; Prothrombin Time 12.8 Seconds (9.4-12.1)
[2020-09-05 11:24] LABS: Alanine Aminotransferase 265 Units/L (7-52); Albumin 3.6 g/dL (3.5-5.7); Albumin/Globulin Ratio 1.3 (1.1-2.2); Alkaline Phosphatase 73 Units/L (34-104); Aspartate Amino Transferase 58 Units/L (13-39); BUN/Creatinine Ratio 27 (6-26); Bilirubin,Total 0.5 mg/dL (0.3-1.0); Blood Urea Nitrogen 20 mg/dL (6-20); Calcium 9.3 mg/dL (8.6-10.3); Carbon Dioxide 25 mEq/L (23-29); Chloride 100 mEq/L (98-107); Globulin 2.8 g/dL (2.4-3.5); Glucose 234 mg/dL (70-105); Magnesium 1.9 mg/dL (1.6-2.6); Osmolality,Calculated 286 (280-300); Phosphorous 3.1 mg/dL (2.7-4.5); Potassium 4.3 mEq/L (3.5-5.1); Sodium 133 mEq/L (136-145); Total Protein 6.4 g/dL (6.4-8.9); eGFR For African Americans > 60 (> 60); eGFR For Non-African Americans > 60 (> 60)
[2020-09-06] MEDS: Ipratropium 1 PUFF INHALER IH SCH ×7 (00:06→23:46)
[2020-09-06] MEDS: *HR* LORazepam 2 MG/ML VIAL IVP PRN (03:17)
[2020-09-06] MEDS: Insulin LISPRO 300 UNITS/3 ML VIAL SQ SCH ×6 (09:04→17:06)
[2020-09-06] MEDS: *HR* Enoxaparin 40 MG/0.4 ML SYRINGE SQ SCH (09:09)
[2020-09-06] MEDS: Furosemide 40 MG TABLET PO SCH ×2 (09:09→17:06)
[2020-09-06] MEDS: Dexamethasone Sodium Phos/PF 10 MG/ML VIAL IVP SCH (09:09)
[2020-09-06] MEDS: Insulin DETEMIR 100 UNIT/ML X5UNITS SQ SCH ×2 (09:10→21:59)
[2020-09-06 13:14] LABS: Basophils # 0.1 K/mcL (0.0-0.2); Basophils % 0.5 %; Eosinophils # 0.1 K/mcL (0.0-0.6); Eosinophils % 0.8 %; Hemoglobin 14.4 g/dL (12.9-16.9); Immature Granulocytes % 1.7 % (0-4); Lymphocytes % 8.3 %; Mean Corpuscular HGB Conc 32.7 g/dL (31.6-35.5); Mean Corpuscular Hemoglobin 30.6 pg (28.0-33.3); Mean Corpuscular Volume 93.4 fL (83.0-100.0); Mean Platelet Volume 10.5 fL (9.4-12.4); Monocytes # 0.5 K/mcL (0.0-1.3); Neutrophils # 10.1 K/mcL (1.6-8.9); Platelet Count 262 K/mcL (140-400); Red Blood Count 4.71 M/mcL (4.19-5.50); Red Cell Distribution Width 13.2 % (11.5-14.5); Segmented Neutrophils % 84.7 %; White Blood Count 11.9 K/mcL (4.3-11.1)
[2020-09-06 13:34] LABS: Alanine Aminotransferase 308 Units/L (7-52); Albumin 3.9 g/dL (3.5-5.7); Albumin/Globulin Ratio 1.2 (1.1-2.2); Alkaline Phosphatase 85 Units/L (34-104); Aspartate Amino Transferase 69 Units/L (13-39); BUN/Creatinine Ratio 33 (6-26); Bilirubin,Total 0.5 mg/dL (0.3-1.0); Blood Urea Nitrogen 23 mg/dL (6-20); Calcium 9.3 mg/dL (8.6-10.3); Carbon Dioxide 21 mEq/L (23-29); Chloride 99 mEq/L (98-107); Globulin 3.3 g/dL (2.4-3.5); Glucose 231 mg/dL (70-105); Magnesium 2.2 mg/dL (1.6-2.6); Osmolality,Calculated 283 (280-300); Phosphorous 2.2 mg/dL (2.7-4.5); Potassium 4.6 mEq/L (3.5-5.1); Sodium 131 mEq/L (136-145); Total Protein 7.2 g/dL (6.4-8.9); eGFR For African Americans > 60 (> 60); eGFR For Non-African Americans > 60 (> 60)
[2020-09-07] MEDS: *HR* LORazepam 2 MG/ML VIAL IVP PRN (01:19)
[2020-09-07] MEDS: Ipratropium 1 PUFF INHALER IH SCH ×5 (04:11→20:32)
[2020-09-07] MEDS: *HR* Enoxaparin 40 MG/0.4 ML SYRINGE SQ SCH (09:15)
[2020-09-07] MEDS: Dexamethasone Sodium Phos/PF 10 MG/ML VIAL IVP SCH (09:16)
[2020-09-07] MEDS: Insulin DETEMIR 100 UNIT/ML X5UNITS SQ SCH ×2 (09:17→20:39)
[2020-09-07] MEDS: Insulin LISPRO 300 UNITS/3 ML VIAL SQ SCH ×6 (09:17→17:46)
[2020-09-07] MEDS: Furosemide 40 MG TABLET PO SCH ×2 (09:18→17:47)
[2020-09-08] MEDS: Ipratropium 1 PUFF INHALER IH SCH ×7 (00:16→23:42)
[2020-09-08] MEDS: *HR* LORazepam 2 MG/ML VIAL IVP PRN ×2 (00:34→23:22)
[2020-09-08 06:22] LABS: Basophils # 0.1 K/mcL (0.0-0.2); Basophils % 0.6 %; Eosinophils # 0.2 K/mcL (0.0-0.6); Eosinophils % 1.6 %; Hematocrit 41.2 % (37.5-50.1); Hemoglobin 13.2 g/dL (12.9-16.9); Immature Granulocytes % 1.6 % (0-4); Lymphocytes # 3.7 K/mcL (0.6-4.6); Lymphocytes % 33.5 %; Mean Corpuscular Hemoglobin 29.6 pg (28.0-33.3); Mean Corpuscular Volume 92.4 fL (83.0-100.0); Mean Platelet Volume 9.9 fL (9.4-12.4); Monocytes # 0.9 K/mcL (0.0-1.3); Monocytes % 8.3 %; Platelet Count 254 K/mcL (140-400); Red Blood Count 4.46 M/mcL (4.19-5.50); Red Cell Distribution Width 13.5 % (11.5-14.5); Segmented Neutrophils % 54.4 %
[2020-09-08 06:45] LABS: Alanine Aminotransferase 336 Units/L (7-52); Albumin 3.6 g/dL (3.5-5.7); Albumin/Globulin Ratio 1.2 (1.1-2.2); Alkaline Phosphatase 66 Units/L (34-104); Aspartate Amino Transferase 63 Units/L (13-39); BUN/Creatinine Ratio 22 (6-26); Bilirubin,Total 0.5 mg/dL (0.3-1.0); Blood Urea Nitrogen 16 mg/dL (6-20); Carbon Dioxide 28 mEq/L (23-29); Chloride 100 mEq/L (98-107); Globulin 2.9 g/dL (2.4-3.5); Glucose 133 mg/dL (70-105); Osmolality,Calculated 283 (280-300); Potassium 4.3 mEq/L (3.5-5.1); Sodium 135 mEq/L (136-145); Total Protein 6.5 g/dL (6.4-8.9); eGFR For African Americans > 60 (> 60); eGFR For Non-African Americans > 60 (> 60)
[2020-09-08] MEDS: Insulin LISPRO 300 UNITS/3 ML VIAL SQ SCH ×6 (08:42→16:56)
[2020-09-08] MEDS: Insulin DETEMIR 100 UNIT/ML X5UNITS SQ SCH ×2 (08:45→20:17)
[2020-09-08] MEDS: Dexamethasone Sodium Phos/PF 10 MG/ML VIAL IVP SCH (08:45)
[2020-09-08] MEDS: Furosemide 40 MG TABLET PO SCH (08:46)
[2020-09-08] MEDS: *HR* Enoxaparin 40 MG/0.4 ML SYRINGE SQ SCH (08:46)
[2020-09-08] MEDS: Furosemide 20 MG TABLET PO SCH (17:02)
[2020-09-09] MEDS: Ipratropium 1 PUFF INHALER IH SCH ×5 (04:04→20:03)
[2020-09-09 06:44] LABS: Hematocrit 45.9 % (37.5-50.1); Hemoglobin 14.7 g/dL (12.9-16.9); Mean Corpuscular Hemoglobin 29.9 pg (28.0-33.3); Mean Corpuscular Volume 93.5 fL (83.0-100.0); Mean Platelet Volume 10.1 fL (9.4-12.4); Platelet Count 296 K/mcL (140-400); Red Blood Count 4.91 M/mcL (4.19-5.50); Red Cell Distribution Width 13.6 % (11.5-14.5); White Blood Count 11.7 K/mcL (4.3-11.1)
[2020-09-09 06:57] LABS: BUN/Creatinine Ratio 27 (6-26); Blood Urea Nitrogen 20 mg/dL (6-20); Calcium 9.5 mg/dL (8.6-10.3); Carbon Dioxide 27 mEq/L (23-29); Chloride 99 mEq/L (98-107); Glucose 137 mg/dL (70-105); Osmolality,Calculated 285 (280-300); Potassium 4.2 mEq/L (3.5-5.1); Sodium 135 mEq/L (136-145); eGFR For African Americans > 60 (> 60); eGFR For Non-African Americans > 60 (> 60)
[2020-09-09] MEDS: *HR* LORazepam 2 MG/ML VIAL IVP PRN ×2 (09:25→23:41)
[2020-09-09] MEDS: Insulin LISPRO 300 UNITS/3 ML VIAL SQ SCH ×6 (09:26→17:48)
[2020-09-09] MEDS: Furosemide 20 MG TABLET PO SCH ×2 (09:26→17:49)
[2020-09-09] MEDS: *HR* Enoxaparin 40 MG/0.4 ML SYRINGE SQ SCH (09:26)
[2020-09-09] MEDS: Dexamethasone 4 MG/ML VIAL IVP SCH (09:26)
[2020-09-09] MEDS: Insulin DETEMIR 100 UNIT/ML X5UNITS SQ SCH ×2 (09:36→19:59)
[2020-09-10] MEDS: Ipratropium 1 PUFF INHALER IH SCH ×7 (00:53→23:34)
[2020-09-10 06:33] LABS: Basophils # 0.1 K/mcL (0.0-0.2); Basophils % 0.7 %; Eosinophils # 0.2 K/mcL (0.0-0.6); Hematocrit 42.2 % (37.5-50.1); Hemoglobin 13.6 g/dL (12.9-16.9); Immature Granulocytes % 2.8 % (0-4); Lymphocytes # 3.9 K/mcL (0.6-4.6); Lymphocytes % 36.5 %; Mean Corpuscular HGB Conc 32.2 g/dL (31.6-35.5); Mean Corpuscular Hemoglobin 29.9 pg (28.0-33.3); Mean Corpuscular Volume 92.7 fL (83.0-100.0); Mean Platelet Volume 9.9 fL (9.4-12.4); Monocytes # 0.9 K/mcL (0.0-1.3); Monocytes % 8.1 %; Neutrophils # 5.3 K/mcL (1.6-8.9); Platelet Count 284 K/mcL (140-400); Red Blood Count 4.55 M/mcL (4.19-5.50); Red Cell Distribution Width 13.7 % (11.5-14.5); Segmented Neutrophils % 49.9 %; White Blood Count 10.6 K/mcL (4.3-11.1)
[2020-09-10 06:49] LABS: Alanine Aminotransferase 305 Units/L (7-52); Albumin 3.7 g/dL (3.5-5.7); Albumin/Globulin Ratio 1.3 (1.1-2.2); Alkaline Phosphatase 76 Units/L (34-104); Aspartate Amino Transferase 43 Units/L (13-39); BUN/Creatinine Ratio 27 (6-26); Bilirubin,Total 0.6 mg/dL (0.3-1.0); Blood Urea Nitrogen 20 mg/dL (6-20); Calcium 9.2 mg/dL (8.6-10.3); Carbon Dioxide 26 mEq/L (23-29); Chloride 100 mEq/L (98-107); Globulin 2.9 g/dL (2.4-3.5); Glucose 141 mg/dL (70-105); Osmolality,Calculated 285 (280-300); Potassium 4.2 mEq/L (3.5-5.1); Sodium 135 mEq/L (136-145); Total Protein 6.6 g/dL (6.4-8.9); eGFR For African Americans > 60 (> 60); eGFR For Non-African Americans > 60 (> 60)
[2020-09-10] MEDS: Insulin LISPRO 300 UNITS/3 ML VIAL SQ SCH ×6 (08:43→16:50)
[2020-09-10] MEDS: Furosemide 20 MG TABLET PO SCH ×2 (08:45→16:48)
[2020-09-10] MEDS: Dexamethasone 4 MG/ML VIAL IVP SCH (08:46)
[2020-09-10] MEDS: *HR* Enoxaparin 40 MG/0.4 ML SYRINGE SQ SCH (08:46)
[2020-09-10] MEDS: Insulin DETEMIR 100 UNIT/ML X5UNITS SQ SCH ×2 (08:47→21:16)
[2020-09-10] MEDS ORDERED: Simethicone 80 MG TAB.CHEW PO PRN (13:20)
[2020-09-10] MEDS: *HR* LORazepam 2 MG/ML VIAL IVP PRN (23:07)
[2020-09-11] MEDS: Ipratropium 1 PUFF INHALER IH SCH ×6 (04:44→23:39)
[2020-09-11] MEDS: Dexamethasone 4 MG/ML VIAL IVP SCH (09:01)
[2020-09-11] MEDS: Insulin DETEMIR 100 UNIT/ML X5UNITS SQ SCH (09:01)
[2020-09-11] MEDS: Furosemide 20 MG TABLET PO SCH ×2 (09:01→17:43)
[2020-09-11] MEDS: Insulin LISPRO 300 UNITS/3 ML VIAL SQ SCH ×6 (09:07→17:41)
[2020-09-11] MEDS: *HR* Enoxaparin 40 MG/0.4 ML SYRINGE SQ SCH (09:09)
[2020-09-11] MEDS: *HR* LORazepam 2 MG/ML VIAL IVP PRN (22:44)
[2020-09-12] MEDS: Ipratropium 1 PUFF INHALER IH SCH ×6 (03:15→23:47)
[2020-09-12] MEDS: Insulin DETEMIR 100 UNIT/ML X5UNITS SQ SCH ×3 (07:53→21:02)
[2020-09-12] MEDS: *HR* Enoxaparin 40 MG/0.4 ML SYRINGE SQ SCH (10:00)
[2020-09-12] MEDS: Furosemide 20 MG TABLET PO SCH ×2 (10:00→16:32)
[2020-09-12] MEDS: Dexamethasone 4 MG/ML VIAL IVP SCH (10:00)
[2020-09-12] MEDS: Insulin LISPRO 300 UNITS/3 ML VIAL SQ SCH ×6 (10:04→16:28)
[2020-09-12] MEDS: *HR* LORazepam 2 MG/ML VIAL IVP PRN (19:37)
[2020-09-12] MEDS: Acetaminophen 325 MG TABLET PO PRN (21:02)
[2020-09-13] MEDS: Ipratropium 1 PUFF INHALER IH SCH ×6 (04:02→23:53)
[2020-09-13 05:17] LABS: Hematocrit 43.3 % (37.5-50.1); Hemoglobin 13.8 g/dL (12.9-16.9); Mean Corpuscular HGB Conc 31.9 g/dL (31.6-35.5); Mean Corpuscular Hemoglobin 29.9 pg (28.0-33.3); Mean Corpuscular Volume 93.7 fL (83.0-100.0); Platelet Count 352 K/mcL (140-400); Red Blood Count 4.62 M/mcL (4.19-5.50); Red Cell Distribution Width 13.6 % (11.5-14.5); White Blood Count 10.8 K/mcL (4.3-11.1)
[2020-09-13 05:39] LABS: BUN/Creatinine Ratio 27 (6-26); Blood Urea Nitrogen 19 mg/dL (6-20); Calcium 9.3 mg/dL (8.6-10.3); Carbon Dioxide 24 mEq/L (23-29); Chloride 102 mEq/L (98-107); Glucose 152 mg/dL (70-105); Osmolality,Calculated 285 (280-300); Potassium 3.9 mEq/L (3.5-5.1); Sodium 135 mEq/L (136-145); eGFR For African Americans > 60 (> 60); eGFR For Non-African Americans > 60 (> 60)
[2020-09-13] MEDS: Dexamethasone 4 MG/ML VIAL IVP SCH (09:42)
[2020-09-13] MEDS: *HR* Enoxaparin 40 MG/0.4 ML SYRINGE SQ SCH (09:42)
[2020-09-13] MEDS: Furosemide 20 MG TABLET PO SCH (09:43)
[2020-09-13] MEDS: Insulin LISPRO 300 UNITS/3 ML VIAL SQ SCH ×6 (09:43→16:56)
[2020-09-13] MEDS: Insulin DETEMIR 100 UNIT/ML X5UNITS SQ SCH ×2 (09:43→20:40)
[2020-09-13] MEDS: Acetaminophen 325 MG TABLET PO PRN (12:09)
[2020-09-14] MEDS: Ipratropium 1 PUFF INHALER IH SCH ×6 (03:50→23:22)
[2020-09-14] MEDS: Insulin LISPRO 300 UNITS/3 ML VIAL SQ SCH ×6 (08:00→17:42)
[2020-09-14] MEDS: Dexamethasone 4 MG/ML VIAL IVP SCH (09:16)
[2020-09-14] MEDS: *HR* Enoxaparin 40 MG/0.4 ML SYRINGE SQ SCH (09:18)
[2020-09-14] MEDS: Furosemide 20 MG TABLET PO SCH (09:18)
[2020-09-14] MEDS: Insulin DETEMIR 100 UNIT/ML X5UNITS SQ SCH ×2 (17:25→20:27)
[2020-09-15] MEDS: Ipratropium 1 PUFF INHALER IH SCH ×5 (03:50→20:50)
[2020-09-15 05:17] LABS: Hematocrit 40.4 % (37.5-50.1); Mean Corpuscular HGB Conc 32.2 g/dL (31.6-35.5); Mean Corpuscular Hemoglobin 29.9 pg (28.0-33.3); Mean Corpuscular Volume 92.9 fL (83.0-100.0); Platelet Count 316 K/mcL (140-400); Red Blood Count 4.35 M/mcL (4.19-5.50); Red Cell Distribution Width 13.6 % (11.5-14.5); White Blood Count 10.9 K/mcL (4.3-11.1)
[2020-09-15 05:29] LABS: BUN/Creatinine Ratio 19 (6-26); Blood Urea Nitrogen 15 mg/dL (6-20); Calcium 9.1 mg/dL (8.6-10.3); Carbon Dioxide 28 mEq/L (23-29); Chloride 100 mEq/L (98-107); Glucose 262 mg/dL (70-105); Osmolality,Calculated 292 (280-300); Potassium 3.9 mEq/L (3.5-5.1); Sodium 136 mEq/L (136-145); eGFR For African Americans > 60 (> 60); eGFR For Non-African Americans > 60 (> 60)
[2020-09-15] MEDS: *HR* Enoxaparin 40 MG/0.4 ML SYRINGE SQ SCH (09:18)
[2020-09-15] MEDS: Furosemide 20 MG TABLET PO SCH (09:19)
[2020-09-15] MEDS: Insulin LISPRO 300 UNITS/3 ML VIAL SQ SCH ×6 (09:22→15:45)
[2020-09-15] MEDS: Insulin DETEMIR 100 UNIT/ML X5UNITS SQ SCH ×2 (09:36→21:18)
[2020-09-15] MEDS: *HR* LORazepam 2 MG/ML VIAL IVP PRN (21:18)
[2020-09-16] MEDS: Ipratropium 1 PUFF INHALER IH SCH ×7 (00:17→23:39)
[2020-09-16] MEDS: Fluticasone Propionate Nasal 50 MCG/SPRAY BOTTLE NS SCH (09:17)
[2020-09-16] MEDS: Insulin DETEMIR 100 UNIT/ML X5UNITS SQ SCH ×2 (09:17→20:40)
[2020-09-16] MEDS: Furosemide 20 MG TABLET PO SCH (09:17)
[2020-09-16] MEDS: Insulin LISPRO 300 UNITS/3 ML VIAL SQ SCH ×6 (09:18→16:28)
[2020-09-16] MEDS: *HR* Enoxaparin 40 MG/0.4 ML SYRINGE SQ SCH (09:18)
[2020-09-16] MEDS: dexAMETHasone 4 MG TABLET PO SCH (11:34)
[2020-09-17] MEDS: Ipratropium 1 PUFF INHALER IH SCH ×7 (04:01→23:45)
[2020-09-17] MEDS: Insulin LISPRO 300 UNITS/3 ML VIAL SQ SCH ×6 (08:39→17:41)
[2020-09-17] MEDS: Furosemide 20 MG TABLET PO SCH (08:40)
[2020-09-17] MEDS: dexAMETHasone 4 MG TABLET PO SCH (08:40)
[2020-09-17] MEDS: *HR* Enoxaparin 40 MG/0.4 ML SYRINGE SQ SCH (08:40)
[2020-09-17] MEDS: Insulin DETEMIR 100 UNIT/ML X5UNITS SQ SCH ×2 (08:41→21:28)
[2020-09-17] MEDS: Fluticasone Propionate Nasal 50 MCG/SPRAY BOTTLE NS SCH (08:41)
[2020-09-17] MEDS: *HR* LORazepam 2 MG/ML VIAL IVP PRN ×3 (08:58→21:55)
[2020-09-17 14:25] LABS: BUN/Creatinine Ratio 22 (6-26); Blood Urea Nitrogen 15 mg/dL (6-20); Calcium 9.9 mg/dL (8.6-10.3); Carbon Dioxide 24 mEq/L (23-29); Chloride 101 mEq/L (98-107); Glucose 233 mg/dL (70-105); Magnesium 2.1 mg/dL (1.6-2.6); Osmolality,Calculated 286 (280-300); Potassium 4.2 mEq/L (3.5-5.1); Sodium 134 mEq/L (136-145); eGFR For African Americans > 60 (> 60); eGFR For Non-African Americans > 60 (> 60)
[2020-09-18] MEDS: Ipratropium 1 PUFF INHALER IH SCH ×5 (03:43→20:30)
[2020-09-18] MEDS: *HR* Enoxaparin 40 MG/0.4 ML SYRINGE SQ SCH (08:11)
[2020-09-18] MEDS: dexAMETHasone 4 MG TABLET PO SCH (08:12)
[2020-09-18] MEDS: Furosemide 20 MG TABLET PO SCH (08:12)
[2020-09-18] MEDS: Insulin LISPRO 300 UNITS/3 ML VIAL SQ SCH ×4 (08:13→17:26)
[2020-09-18] MEDS: Insulin DETEMIR 100 UNIT/ML X5UNITS SQ SCH (08:18)
[2020-09-18] MEDS: *HR* LORazepam 2 MG/ML VIAL IVP PRN ×2 (08:24→21:52)
[2020-09-18] MEDS: *HR* Metformin 500 MG TABLET PO SCH ×2 (12:11→17:26)
[2020-09-18] MEDS: Fluticasone Propionate Nasal 50 MCG/SPRAY BOTTLE NS SCH (12:12)
[2020-09-19] MEDS: Ipratropium 1 PUFF INHALER IH SCH ×4 (00:41→11:52)
[2020-09-19] MEDS: Insulin LISPRO 300 UNITS/3 ML VIAL SQ SCH ×2 (07:55→13:43)
[2020-09-19] MEDS: Furosemide 20 MG TABLET PO SCH (07:55)
[2020-09-19] MEDS: *HR* Metformin 500 MG TABLET PO SCH (07:55)
[2020-09-19] MEDS: Fluticasone Propionate Nasal 50 MCG/SPRAY BOTTLE NS SCH (08:00)
[2020-09-19] MEDS: *HR* Enoxaparin 40 MG/0.4 ML SYRINGE SQ SCH (08:00)
[2020-09-19] MEDS: *HR* LORazepam 2 MG/ML VIAL IVP PRN (08:05)
[2020-09-19 13:02] VITALS: BP 117/73
== END 2020-09-19 15:10 | disposition home or self-care (01) ==
LOC: EMEROOARM 19:18 → 2NENU 19:18 → SUATTDRO 23:23 → 2NENU 23:52 → SUATTDRO 08-15 08:22 → 2NENU 09-12 23:45 → 3BNU 09-14 21:17
PROVIDERS: ADMIT Family Medicine; ATTEND Internal Medicine